=== PATIENT | female | born 1960 | race Caucasian/White ===

== ENCOUNTER → 2018-07-17 | Outpatient (CLI) | payer BC ==
[~2018-07-17] MED LIST: AMOX PO; AMOX/K; AMOX/K CLAV; CALCCHW19 PO; CHLORTHALIDONE PO; CYCL7.5T2 PO; K CLAV PO; LIDOCAINE 1% MDV 20ML VIAL As Ordered ONE; PROM1SYP PO; VICO5TAB PO; VITA500T53 PO
--- NOTE | 2018-07-17 12:05 | REP ---
Digital diagnostic unilateral right breast mammography with CAD: Two views. History: Marker clip placement views. The patient is status post stereotactically guided needle biopsy for microcalcifications right breast upper outer quadrant. Comparison mammography June 25, 2018. Findings: CC and true MLO views of the right breast demonstrate that the newly placed needle biopsy marker clip is in good position at the site of the microcalcifications. The microcalcifications are almost all removed by the current biopsy. This is the same size site as the previous needle biopsy marker clip is placed. No significant hematoma is seen. Impression: Needle biopsy marker clip in good position. Electronically Signed by Thiago Avelar MD 07/17/2018 05:43 P
--- NOTE | 2018-07-17 12:09 | REP ---
Specimen radiograph single view right breast. History: Microcalcific grouping. Stereotactic needle biopsy. Comparison mammography June 25, 2018. Findings: Specimen radiography demonstrates numerous microcalcifications from the microcalcific target in specimen number one. There are a few microcalcifications in specimen number four. Impression: Specimen radiography shows microcalcifications from the target cluster. Electronically Signed by Thiago Avelar MD 07/17/2018 05:44 P
--- NOTE | 2018-07-17 17:49 | REP ---
STEREOTACTIC RIGHT BREAST BIOPSY The procedure was performed under the direct supervision of Dr. Avelar The patient has a history of a focal cluster of microcalcifications in the upper outer quadrant of the right breast seen on a previous mammogram from [facility] performed on 06/25/2018. The risks and benefits of the procedure were explained to the patient and informed consent was obtained. A craniocaudal approach was utilized. The calcifications were localized using stereotactic mammographic guidance. 1% Xylocaine was used as a local anesthetic. An 8 gauge, suction assisted Mammotome needle was inserted and 6 core biopsy samples were obtained. Specimen radiograph demonstrates the presence of calcifications to be within the specimen. A marker clip was placed at the biopsy site. The patient tolerated the procedure well and there were no immediate complications. After the appropriate amount of monitored convalescence, the patient was discharged from the department. Reviewed by ROSMERY Walker 07/17/2018 03:22 P Electronically Signed by Thiago Avelar MD 07/17/2018 05:41 P
== END ==
LOC: M RADPRO 10:43
PROVIDERS: ATTEND Family Medicine
DX: R92.0 Mammographic microcalcification found on diagnostic imaging of breast (principal); Z79.899 Other long term (current) drug therapy; Z88.1 Allergy status to other antibiotic agents; Z88.8 Allergy status to other drugs, medicaments and biological substances

== ENCOUNTER → 2020-06-11 | Outpatient (CLI) | payer OTHER ==
[~2020-06-11] MED LIST changes: -LIDOCAINE 1% MDV 20ML VIAL As Ordered ONE
== END ==
LOC: M LABSMTC 12:00
PROVIDERS: ATTEND Nurse Practitioner Adult Health
DX: Z20.828 Contact with and (suspected) exposure to other viral communicable diseases (principal)

== ENCOUNTER → 2020-08-08 | Outpatient (CLI) | payer OTHER | LOC: M LABSMTC 10:01 | PROVIDERS: ATTEND Student in an Organized Health Care Education/Training Program | DX: Z20.822 Contact with and (suspected) exposure to COVID-19 (principal) ==

== ENCOUNTER → 2020-09-15 | Outpatient (CLI) | payer OTHER | LOC: M LABSMTC 12:10 | PROVIDERS: ATTEND Nurse Practitioner Adult Health | DX: Z20.828 Contact with and (suspected) exposure to other viral communicable diseases (principal); Z11.59 Encounter for screening for other viral diseases ==